=== PATIENT | female | born 1940 | race American Indian/Alaskan Native ===

== ENCOUNTER 2016-06-25 08:47 | Emergency (ER) | payer MEDICARE ==
[2016-06-25 08:48] VITALS: BMI 22.1
[2016-06-25 08:53] VITALS: RESP 18; TEMP 98
--- NOTE | 2016-06-25 09:12 | C.PDOC ---
History Of Present Illness 75 year old patient, with a past medical history of arthritis, hypertension, hypercholesterolemia, and COPD, presents to the ED complaining of chronic neck and back pain. Patient states she takes Tylenol and Percocet for the pain, but hasn't today because she didn't eat anything yet. Patient feels mild relief after taking a warm shower and running hot water on her neck and back. She notes the pain immediately returns afterwards. Patient denies headache, dizziness, numbness, weakness, dysuria, incontinence, nausea or vomiting. Time Seen by Provider: 06/25/16 09:02 Chief Complaint (Nursing): Back Pain History Per: Patient History/Exam Limitations: no limitations Onset/Duration Of Symptoms: Other (chronic) Current Symptoms Are (Timing): Still Present Quality Of Discomfort: "Pain" Severity: Moderate Pain Scale Rating Of: 4 Previous Symptoms: Chronic Pain Associated Symptoms: None Exacerbating Factor(s): Nothing Recent travel outside of the [place]: No Past Medical History Reviewed: Historical Data, Nursing Documentation, Vital Signs Vital Signs: Last Vital Signs Temp 98 F 06/25/16 08:49 Pulse 67 06/25/16 09:40 Resp 18 06/25/16 09:40 BP 154/72 H 06/25/16 09:40 Pulse Ox 100 06/25/16 11:00 - Medical History PMH: Arthritis, COPD, HTN, Hypercholesterolemia - [facility] Procedures INJECT/INFUSE NEC (01/01/13) VENOUS PUNCTURE NEC (03/30/13) Family History: States: Unknown Family Hx - Social History Hx Tobacco Use: Yes Hx Alcohol Use: No Hx Substance Use: No - Immunization History Hx Tetanus Toxoid Vaccination: No Hx Influenza Vaccination: No Hx Pneumococcal Vaccination: No Review Of Systems Except As Marked, All Systems Reviewed And Found Negative. Gastrointestinal: Negative for: Nausea, Vomiting Genitourinary: Negative for: Dysuria, Incontinence Musculoskeletal: Positive for: Neck Pain, Back Pain Neurological: Negative for: Weakness, Numbness, Headache, Dizziness Physical Exam - Physical Exam Appears: Non-toxic, No Acute Distress Skin: Warm, Dry Head: Atraumatic, Normacephalic Eye(s): bilateral: PERRL, EOMI Neck: Normal ROM, Supple, Other (soft neck collar) Chest: Symmetrical Cardiovascular: Rhythm Regular Respiratory: Normal Breath Sounds, No Rales, No Rhonchi, No Wheezing Gastrointestinal/Abdominal: Soft, No Tenderness Back: Normal Inspection, No CVA Tenderness, No Decreased ROM Extremity: Normal ROM Neurological/Psych: Oriented x3, Normal Speech, Normal Cognition, Normal Motor, Normal Sensation Gait: Steady ED Course And Treatment O2 Sat by Pulse Oximetry: 100 Medical Decision Making Medical Decision Making: chronic neck/back pains, has extensive percocet/Tylenol #3 regimen @ home. did not take any yet today "because I haven't eaten yet" Displays bottle of both narcs no acute injury, nor symptoms, no falls, no new neurological issues Cautioned against hot showers- makes inflammation worse. Disposition Doctor Will See Patient In The: Office Counseled Patient/Family Regarding: Studies Performed, Diagnosis - Disposition Referrals: Rajiv Solano MD [Staff Provider] - Disposition: HOME/ ROUTINE Disposition Time: 09:11 Condition: GOOD Additional Instructions: continue your normal narcotics routine (Percocet and Tylenol #3) as already prescribed Avoid hot showers as they make all arthritis worse. Follow-up with Dr. Blanton as needed. Instructions: Chronic Pain (ED) - Clinical Impression Clinical Impression: Chronic neck pain - Scribe Statement The provider has reviewed the documentation as recorded by the Scribe Sarah Briggs Provider Attestation: All medical record entries made by the Scribe were at my direction and personally dictated by me. I have reviewed the chart and agree that the record accurately reflects my personal performance of the history, physical exam, medical decision making, and the department course for this patient. I have also personally directed, reviewed, and agree with the discharge instructions and disposition.
[2016-06-25 09:40] VITALS: BP 154/72; PULSE 67
[2016-06-25 10:42] VITALS: O2SAT 100
== END 2016-06-25 09:41 | disposition home or self-care (01) ==
LOC: C.ER 08:47
DX: G89.29 Other chronic pain (principal); M54.2 Cervicalgia

== ENCOUNTER 2017-09-27 13:20 | Emergency (ER) | payer MEDICARE ==
[2017-09-27 13:20] VITALS: BMI 22.1
[2017-09-27 13:34] VITALS: TEMP 98
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
[2017-09-27 15:33] VITALS: BP 120/71; PULSE 68; RESP 18
[2017-09-27 15:47] VITALS: O2SAT 100
== END 2017-09-27 15:33 | disposition home or self-care (01) ==
LOC: C.ER 13:20
DX: M79.602 Pain in left arm (principal)
CPT/HCPCS: 96372; 99284; J1885

== ENCOUNTER 2017-12-16 13:45 | Emergency (ER) | payer MEDICARE ==
[2017-12-16 13:46] VITALS: BMI 22.1
[2017-12-16 14:19] VITALS: BP 130/80; PULSE 62; TEMP 98; O2SAT 98
--- NOTE | 2017-12-16 14:29 | C.PDOC ---
History Of Present Illness 77 year old female presents to the ED c/o chronic right knee pain for the past 5-6 months. Patient reports she has been taking Tylenol #3 that was given to her by her pain management Doctor. However patient still c/o persistent pain. Patient denies fever, chills, rash, weakness, numbness, injury, fall, trauma. Time Seen by Provider: 12/16/17 14:24 Chief Complaint (Nursing): Pain, Chronic History Per: Patient History/Exam Limitations: no limitations Onset/Duration Of Symptoms: Persistent Current Symptoms Are (Timing): Still Present Reports Recently: Treated By A Physician (Pain management) Recent travel outside of the [place]: No Additional History Per: Patient Past Medical History Reviewed: Historical Data, Nursing Documentation, Vital Signs Vital Signs: Last Vital Signs Temp 98 F 12/16/17 14:13 Pulse 62 12/16/17 14:13 Resp 18 12/16/17 14:13 BP 130/80 12/16/17 14:13 Pulse Ox 98 12/16/17 14:13 - Medical History PMH: Arthritis, COPD, HTN, Hypercholesterolemia Surgical History: No Surg Hx - [facility] Procedures INJECT/INFUSE NEC (01/01/13) VENOUS PUNCTURE NEC (03/30/13) Family History: States: Unknown Family Hx - Social History Hx Tobacco Use: Yes Hx Alcohol Use: No Hx Substance Use: No - Immunization History Hx Tetanus Toxoid Vaccination: No Hx Influenza Vaccination: No Hx Pneumococcal Vaccination: No Review Of Systems Constitutional: Negative for: Fever, Chills Cardiovascular: Negative for: Chest Pain Respiratory: Negative for: Shortness of Breath Gastrointestinal: Negative for: Nausea, Vomiting Musculoskeletal: Positive for: Leg Pain Skin: Negative for: Rash Neurological: Negative for: Weakness, Numbness Physical Exam - Physical Exam Appears: Non-toxic, No Acute Distress Skin: Normal Color, Warm, Dry Head: Atraumatic, Normacephalic Eye(s): bilateral: Normal Inspection Neck: Normal ROM, Supple Chest: Symmetrical Cardiovascular: Rhythm Regular Respiratory: Normal Breath Sounds, No Rales, No Rhonchi, No Wheezing Gastrointestinal/Abdominal: Soft, No Tenderness, No Guarding, No Rebound Extremity: Normal ROM, Tenderness (right knee mild tenderness), No Calf Tenderness, Capillary Refill (< 2 seconds), Swelling (mild right knee) Pulses: Left Dorsalis Pedis: Normal, Right Dorsalis Pedis: Normal Neurological/Psych: Oriented x3, Normal Speech, Normal Cognition, Normal Motor, Normal Sensation Gait: Steady ED Course And Treatment O2 Sat by Pulse Oximetry: 98 (ON RA) Pulse Ox Interpretation: Normal Progress Note: Plan: - Flexeril 10 mg PO. 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: 12/08/2017 1 12/04/2017 ACETAMINOPHEN-COD #3 TABLET 30.0 8 SA QIA [id number] [facility] (8083) 0 16.88 [facility] [place] 11/09/2017 1 11/06/2017 ACETAMINOPHEN-COD #3 TABLET 30.0 8 NI HE, [id number] [facility] (8083) 0 16.88 [place] 10/10/2017 1 10/09/2017 ACETAMINOPHEN-COD #3 TABLET 30.0 8 SA QIA [id number] [facility] (8083) 0 16.88 [place] 09/17/2017 1 09/17/2017 ACETAMINOPHEN-COD #3 TABLET 30.0 30 NI HE, [id number] [facility] (8083) 0 4.5 MME Comm Ins [place] 07/09/2017 1 07/09/2017 ACETAMINOPHEN-COD #3 TABLET 30.0 30 NI HE, [id number] [facility] (8083) 0 4.5 [place] 04/30/2017 1 04/28/2017 ACETAMINOPHEN-COD #3 TABLET 20.0 10 CE CAB [id number] [facility] (8083) 0 9.0 [place] 03/13/2017 1 03/09/2017 ACETAMINOPHEN-COD #3 TABLET 30.0 10 RA MAN [id number] [facility] (8083) 0 13.5 [place] Name Address [facility] Zip Phone MD JMIMY, FANY [address] [place] [phone] MD ESTER, SHARATH [address] [facility] [id number] [phone] LEONEL DE LA FUENTE [address] [facility] [id number] [phone] BRITNEY CRAFT [address] [facility] [phone] [facility] Address [facility] Zip Phone [employer] [phone] [facility] [phone] Disposition Counseled Patient/Family Regarding: Diagnosis, Need For Followup, Rx Given - Disposition Referrals: Juvenal Marquez [Staff Provider] - Disposition: HOME/ ROUTINE Disposition Time: 14:45 Condition: STABLE Additional Instructions: FOLLOW UP WITH DR MARQUEZ IN 1-2 DAYS, AND WITH YOUR PAIN MANAGMENT DOCTOR SCHEDULED CONTINUE YOUR PAIN MEDICATIONS THAT YOU USE AT HOME RETURN TO ER IF SYMPTOMS WORSEN Prescriptions: Naproxen 375 mg PO BID PRN #20 tablet PRN Reason: pain Instructions: Chronic Knee Pain (DC) Forms: WedWu (Gibraltarian) Print Language: MEXICAN - POA Present On Arrival: None - Clinical Impression Clinical Impression: Chronic pain of right knee - Scribe Statement The provider has reviewed the documentation as recorded by the Scribe Osmin Ferrera All medical record entries made by the Lesiaibe were at my direction and p ersonally dictated by me. I have reviewed the chart and agree that the record accurately reflects my personal performance of the history, physical exam, medical decision making, and the department course for this patient. I have also personally directed, reviewed, and agree with the discharge instructions and disposition.
[2017-12-16] MEDS ORDERED: guaiFENesin 100 mg/5 ml Syrup UD ONE (14:59)
[2017-12-16 15:02] VITALS: RESP 16
== END 2017-12-16 15:01 | disposition home or self-care (01) ==
LOC: C.ER 13:45
DX: M25.561 Pain in right knee (principal); G89.29 Other chronic pain
CPT/HCPCS: 96372; 99284; J1885

== ENCOUNTER 2017-12-29 15:21 | Emergency (ER) | payer MEDICARE ==
[2017-12-29 15:21] VITALS: BMI 22.1
[2017-12-29 15:32] VITALS: BP 135/86; PULSE 71; RESP 18; TEMP 98.7; O2SAT 100
--- NOTE | 2017-12-29 15:58 | C.PDOC ---
History Of Present Illness 77 y/o female patient with hx of osteoarthritis comes in for evaluation of right knee pain that became worse in the past few days. Patient reports she notice her right knee is swollen and more painful for past few days, worse when ambulating. Pt admits, similar sx in past, was seen by PMD, PM multiple times. Pt notes she takes percocet at home currently. Patient denies known recent trauma, injury,denies new weakness , sensory or vascular deficit of Right leg. Ambulate to ED, noted wearing Right knee brace. Time Seen by Provider: 12/29/17 15:39 Chief Complaint (Nursing): Lower Extremity Problem/Injury History Per: Patient History/Exam Limitations: no limitations Onset/Duration Of Symptoms: Days Current Symptoms Are (Timing): Still Present Past Medical History Reviewed: Historical Data, Nursing Documentation, Vital Signs Vital Signs: Last Vital Signs Temp 98.7 F 12/29/17 15:30 Pulse 71 12/29/17 15:30 Resp 18 12/29/17 15:30 BP 135/86 12/29/17 15:30 Pulse Ox 100 12/29/17 15:30 - Medical History PMH: Arthritis, COPD, HTN, Hypercholesterolemia - [facility] Procedures INJECT/INFUSE NEC (01/01/13) VENOUS PUNCTURE NEC (03/30/13) Family History: States: Unknown Family Hx - Social History Hx Tobacco Use: Yes Hx Alcohol Use: No Hx Substance Use: No - Immunization History Hx Tetanus Toxoid Vaccination: No Hx Influenza Vaccination: No Hx Pneumococcal Vaccination: No Review Of Systems Except As Marked, All Systems Reviewed And Found Negative. Musculoskeletal: Positive for: Leg Pain (right knee pain ) Neurological: Negative for: Weakness, Other (trauma/injury; sensory vascular deficit ) Physical Exam - Physical Exam Appears: Well, Non-toxic, No Acute Distress Skin: Normal Color, Warm, Dry, No Rash, No Ecchymosis Extremity: Normal ROM (limited Right knee flexion due to pain ), Tenderness (diffuse tenderness of right knee with mild diffuse edema. No erythema.), No Calf Tenderness (B/L), Capillary Refill (less than 2sec to Right foot), No Deformity Extremity: Right: Painful To Bear Weight Pulses: Left Dorsalis Pedis: Normal, Right Dorsalis Pedis: Normal Neurological/Psych: Oriented x3, Normal Speech, Normal Motor, Normal Sensation, Normal Reflexes ED Course And Treatment O2 Sat by Pulse Oximetry: 100 (RA) Pulse Ox Interpretation: Normal - Other Rad Right knee X-Ray: Read By Radiologist Interpretation: Advanced osteoarthritis seen affecting the right knees patellofemoral and lateral femorotibial compartments the most and mild to mildly affects the medial femorotibial compartment. Gross articular cortical sclerosis and osteophyte development are identified at the lateral femorotibial compartment. Diffuse osteopenia suggests osteoporosis. Small calcification in the medial knee and lower leg soft tissues suggest probable vascular calcifications. . Progress Note: Impression: right knee pain. Plans: -- XR of right knee. -- prednisone. Reassess: On re-eval, pt is afebrile, hemodynamically stable. Non- toxic. Ambulatory in ED with baseline gait. Right kne: diffuse tenderness with mild edema. No erythema, no palpable deformity. no neurovascular deficits. Imaging review (+) Severe DJD of Right knee. Knee immobilizer placed. Pt advised and ref. to f/u with Ortho in 2-3 days for re-eavl. return if any new changes. Disposition Counseled Patient/Family Regarding: Studies Performed, Diagnosis, Need For Followup, Rx Given - Disposition Referrals: Juvenal White [Staff Provider] - Ac Jones III, MD [Staff Provider] - Disposition: HOME/ ROUTINE Disposition Time: 16:25 Condition: STABLE Additional Instructions: Knee immobilizer take medication as prescribed Follow up with PMD, Orthopedist in 2-3 days for re-evaluation. return if any new changes. 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 - Scribe Statement The provider has reviewed the documentation as recorded by the Rain Kwan Do All medical record entries made by the Scribe were at my direction and personally dictated by me. I have reviewed the chart and agree that the record accurately reflects my personal performance of the history, physical exam, medical decision making, and the department course for this patient. I have also personally directed, reviewed, and agree with the discharge instructions and disposition.
--- NOTE | 2017-12-29 17:26 | RAD ---
Right knee four views HISTORY: Pain. COMPARISON: None available. FINDINGS: Severe lateral compartment joint space narrowing of the femorotibial joint space with subchondral sclerosis and osteophytosis. Spurring of the tibial spines. Moderate patellofemoral compartment joint space narrowing with subchondral sclerosis. Moderate suprapatellar joint effusion. Question small loose osteochondral bodies at the posterior aspect of the femorotibial joint space. Enthesopathic change noted at the superior and inferior bony patella anteriorly. Vascular calcifications. Productive change and or calcification seen adjacent to the medial and lateral femoral condyles on the frontal view, nonspecific. Impression: Severe lateral compartment joint space narrowing of the femorotibial joint space with subchondral sclerosis and osteophytosis. Spurring of the tibial spines. Moderate patellofemoral compartment joint space narrowing with subchondral sclerosis. Moderate suprapatellar joint effusion. Question small loose osteochondral bodies at the posterior aspect of the femorotibial joint space. Enthesopathic change noted at the superior and inferior bony patella anteriorly. Vascular calcifications. Productive change and or calcification seen adjacent to the medial and lateral femoral condyles on the frontal view, nonspecific. If pain persists, consider MRI.
== END 2017-12-29 16:56 | disposition home or self-care (01) ==
LOC: C.ER 15:21
DX: M17.11 Unilateral primary osteoarthritis, right knee (principal)

== ENCOUNTER 2018-06-15 12:19 | Emergency (ER) | payer OTHER, MEDICARE ==
[2018-06-15 12:20] VITALS: BMI 22.1
[2018-06-15 12:58] VITALS: BP 152/83; PULSE 67; RESP 18; TEMP 97.8; O2SAT 98
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
== END 2018-06-15 13:26 | disposition home or self-care (01) ==
LOC: C.ER 12:19
DX: G89.29 Other chronic pain (principal); M25.561 Pain in right knee
CPT/HCPCS: 96372; 99284; J1885